=== PATIENT | male | born 1925 | race Caucasian/White ===

== ENCOUNTER 2016-12-20 15:01 | Emergency (ER) | payer OTHER, MEDICARE ==
[2016-12-20 15:07] VITALS: TEMP 97.5
--- NOTE | 2016-12-20 15:18 | EDPHY ---
H & P Stated Complaint: lac to r arm Time Seen by Provider: 12/20/16 15:11 HPI/ROS: CHIEF COMPLAINT: Arm laceration HISTORY OF PRESENT ILLNESS: The patient is an 89-year-old man who was walking out his door and hit his arm on the door handle. He has a laceration to his right forearm on the palmar aspect. Neurovascularly intact distally. He denies other injuries. Normal range of motion movement. REVIEW OF SYSTEMS: Constitutional: denies: chills, fever, recent illness, recent injury EENTM: denies: blurred vision, double vision, nose congestion Respiratory: denies: cough, shortness of breath Cardiac: denies: chest pain, irregular heart rate, lightheadedness, palpitations Gastrointestinal/Abdominal: denies: abdominal pain, diarrhea, nausea, vomiting, blood streaked stools Genitourinary: denies: dysuria, frequency, hematuria, pain Musculoskeletal: denies: joint pain, muscle pain Skin: See HPI Neurological: denies: headache, numbness, paresthesia, tingling, dizziness, weakness Hematologic/Lymphatic: denies: blood clots, easy bleeding, easy bruising Immunologic/allergic: denies: HIV/AIDS, transplant EXAM: GENERAL: Well-appearing, well-nourished and in no acute distress. HEAD: Atraumatic, normocephalic. EYES: Pupils equal round and reactive to light, extraocular movements intact, sclera anicteric, conjunctiva are normal. ENT: TMs normal, nares patent, oropharynx clear without exudates. Moist mucous membranes. NECK: Normal range of motion, supple without lymphadenopathy or JVD. LUNGS: Breath sounds clear to auscultation bilaterally and equal. No wheezes rales or rhonchi. HEART: Regular rate and rhythm without murmurs, rubs or gallops. ABDOMEN: Soft, nontender, normoactive bowel sounds. No guarding, no rebound. No masses appreciated. BACK: No CVA tenderness, no spinal tenderness, step-offs or deformities EXTREMITIES: Normal range of motion, no pitting or edema. No clubbing or cyanosis. NEUROLOGICAL: Cranial nerves II through XII grossly intact. Normal speech, normal gait. 5/5 strength, normal movement in all extremities, normal sensation PSYCH: Normal mood, normal affect. SKIN: 4 cm 90 degree laceration right forearm as described above, Source: Patient Exam Limitations: No limitations - Personal History Current Tetanus/Diphtheria Vaccine: Yes - Medical/Surgical History Hx Asthma: No Hx Chronic Respiratory Disease: No Hx Diabetes: No Hx Cardiac Disease: No Hx Renal Disease: No Hx Cirrhosis: No Hx Alcoholism: No Hx HIV/AIDS: No Hx Splenectomy or Spleen Trauma: No Other PMH: HTN, HYPERLIPIDEMIA, HYPOTHYROID - Family History Significant Family History: No pertinent family hx - Social History Smoking Status: Never smoked Alcohol Use: Sober Drug Use: None Constitutional: Initial Vital Signs Temperature (C) 36.4 C 12/20/16 15:04 Heart Rate 84 12/20/16 15:04 Respiratory Rate 17 12/20/16 15:04 Blood Pressure 158/88 H 12/20/16 15:04 O2 Sat (%) 92 12/20/16 15:04 O2 Delivery Mode Room Air Allergies/Adverse Reactions: No Known Allergies Allergy (Verified 12/20/16 15:02) Home Medications: Medication Instructions Recorded Aspirin [Aspirin 325 mg (*)] 325 mg PO DAILY@18 10/28/15 Brimonidine 0.1% [ALPHAGAN P 0.1% 1 drops EACHEYE BID 10/28/15 (*)] Latanoprost 0.005% [Xalatan 0.005% 1 drops LEFTEYE HS 10/28/15 (*)] Levothyroxine [Synthroid 50 mcg 50 mcg PO DAILY06 10/28/15 (*)] Lisinopril [Zestril 20 mg (*)] 20 mg PO DAILY 10/28/15 Metoprolol Succinate Xr [Toprol Xl 25 mg PO DAILY@12 10/28/15 25 mg (*)] Rosuvastatin Calcium [Crestor 20mg 20 mg PO DAILY@18 10/28/15 (*)] Acetaminophen [Tylenol 325mg (*)] 650 mg PO Q4 PRN #0 tab 10/30/15 Medical Decision Making Procedures: Procedure: Laceration repair. Verbal consent was obtained from the patient. The 4 cm arm laceration was anesthetized with [1% lidocaine with epi and bicarbonate] [locally infiltrated] . The wound was irrigated copiously according to protocol, draped and explored to its base. It was approximately 2 mm deep. There were no deep structures involved. No tendon, nerve, or vascular injury was identified when explored [ through full range of motion]. No foreign body was identified. The wound was repaired with 5.0 gut, for interrupted sutures in 2 horizontal mattress. The wound repair was complex with flap realignment. The procedure was performed by myself. It was then reinforced with Steri-Strips. A dressing was then placed with sterile gauze. ED Course/Re-evaluation: Patient tolerated the procedure well. He is neurovascularly intact. We discussed suture care and follow-up. We discussed indications for returning. Differential Diagnosis: Partial list of the Differential diagnosis considered include but were not limited to; laceration, contusion and although unlikely based on the history and physical exam, I also considered fracture, foreign body, infection. I discussed these differential diagnoses and the plan with the patient as well as the usual and expected course. The patient understands that the diagnosis is provisional and that in medicine we are not always correct and that further workup is often warranted. Usual and customary warnings were given. All of the patient's questions were answered. The patient was instructed to return to the emergency department should the symptoms at all worsen or return, otherwise to followup with the physician as we discussed. Departure - Departure Disposition: Home, Routine, Self-Care Clinical Impression: Laceration Condition: Fair Instructions: Laceration (ED), Care For Your Absorbable Stitches (ED) Additional Instructions: Your stitches should dissolve in the next 5-6 days. If they do not return to have them removed. Referrals: Jose Miguel Salazar MD [Primary Care Provider] - As per Instructions
[2016-12-20 16:24] VITALS: BP 136/65; PULSE 71; RESP 16; O2SAT 90
== END 2016-12-20 16:23 | disposition home or self-care (01) ==
PROC: 0HQDXZZ Repair Right Lower Arm Skin, External Approach (ICD-10-PCS; principal; 2016-12-20)
DX: S51.811A Laceration without foreign body of right forearm, initial encounter (principal); I10 Essential (primary) hypertension; Z79.82 Long term (current) use of aspirin; W22.8XXA Striking against or struck by other objects, initial encounter; Y99.8 Other external cause status; Y93.01 Activity, walking, marching and hiking

== ENCOUNTER 2016-12-26 13:57 | Inpatient (IN) | payer OTHER, MEDICARE ==
--- NOTE | 2016-12-26 14:36 | EDPHY ---
H & P Stated Complaint: swollen R arm Time Seen by Provider: 12/26/16 14:23 HPI/ROS: CHIEF COMPLAINT: Possible cellulitis HISTORY OF PRESENT ILLNESS: 89-year-old immunocompetent male initially evaluated emergency department on 12/20/2016 after he sustained an accidental laceration to his right forearm at which point sutures replaced. States that 2 days later started to developed diffuse erythema, has been seen 3 times at the [facility] and given IV antibiotics. Today he returned to [facility] and because the erythema had progressed he was referred to the emergency department for evaluation PRIMARY CARE PROVIDER:Dr. Jose Miguel Salazar REVIEW OF SYSTEMS: A ten point review of systems was performed and is negative with the exception of the items mentioned in the HPI PAST MEDICAL & SURGICAL HISTORY: Hypertension. Hypothyroidism. Tetanus up-to -date SOCIAL HISTORY: nonsmoker PHYSICAL EXAM (Prior to examination, patient consented to physical exam, hands were washed and my usual and customary physical exam procedures followed) 1) GENERAL: Well-developed, well-nourished, alert and oriented. Appears to be in no acute distress. 2) HEAD: Normocephalic, atraumatic 3) HEENT: Pupils equal, round, reactive to light bilaterally. Sclera anicteric. 4) NECK: Full range of motion, no meningeal signs. 5) LUNGS: Clear auscultation bilaterally 6) HEART: Regular rate and rhythm, 7) ABDOMEN: No guarding, no rebound, no focal tenderness, 8) MUSCULOSKELETAL: right upper extremity: Right forearm sutures in place. He has diffuse erythema extending proximally distally with associated induration. No axillary adenopathy. No crepitus. 9) BACK: no obvious trauma, no visual or palpable abnormality. 10) SKIN: No rash, no petechiae. DIFFERENTIAL DIAGNOSIS: in no particular include but limited to necrotizing fasciitis, cellulitis, abscess - Personal History Current Tetanus/Diphtheria Vaccine: Yes Current Tetanus Diphtheria and Acellular Pertussis (TDAP): Yes - Medical/Surgical History Hx Asthma: No Hx Chronic Respiratory Disease: No Hx Diabetes: No Hx Cardiac Disease: No Hx Renal Disease: No Hx Cirrhosis: No Hx Alcoholism: No Hx HIV/AIDS: No Hx Splenectomy or Spleen Trauma: No Other PMH: HTN, HYPERLIPIDEMIA, HYPOTHYROID - Social History Smoking Status: Never smoked Constitutional: Initial Vital Signs Temperature (C) 36.5 C 12/26/16 14:03 Heart Rate 105 H 12/26/16 14:03 Respiratory Rate 16 12/26/16 14:03 Blood Pressure 126/58 H 12/26/16 14:03 O2 Sat (%) 93 12/26/16 14:03 O2 Delivery Mode Room Air Allergies/Adverse Reactions: No Known Allergies Allergy (Verified 12/20/16 15:02) Home Medications: Medication Instructions Recorded Aspirin [Aspirin 325 mg (*)] 325 mg PO DAILY@18 10/28/15 Brimonidine 0.1% [ALPHAGAN P 0.1% 1 drops EACHEYE BID 10/28/15 (*)] Latanoprost 0.005% [Xalatan 0.005% 1 drops LEFTEYE HS 10/28/15 (*)] Levothyroxine [Synthroid 50 mcg 50 mcg PO DAILY06 10/28/15 (*)] Lisinopril [Zestril 20 mg (*)] 20 mg PO DAILY 10/28/15 Metoprolol Succinate Xr [Toprol Xl 25 mg PO DAILY@12 10/28/15 25 mg (*)] Rosuvastatin Calcium [Crestor 20mg 20 mg PO DAILY@18 10/28/15 (*)] Acetaminophen [Tylenol 325mg (*)] 650 mg PO Q4 PRN #0 tab 10/30/15 Medical Decision Making - Diagnostics Imaging Results: Imaging Impressions Extremity Venous Study 12/26/16 14:32 Impression: No evidence of DVT. Findings discussed with Eleuterio Valle 12/26/2016 at 16:02. Imaging: Discussed imaging studies w/ call manager Radiologist ED Course/Re-evaluation: Serial evaluations performed on patient. Doubt necrotizing fasciitis. Ultrasound performed to evaluate DVT. Plan will be admission to hospitalist for right upper extremity cellulitis. The sutures have been removed by myself. Discussed case with Dr. Gardner in ER. Consultation with hospitalist Dr. Burton at 3:19 pm who accepts patient for admission - Data Points Laboratory Results: Laboratory Results 12/26/16 15:00 12/26/16 15:00 12/26/16 12/26/16 12/26/16 15:00 15:00 15:00 WBC 15.62 10^3/uL H 10^3/uL (3.80-9.50) RBC 4.46 10^6/uL 10^6/uL (4.40-6.38) Hgb 14.3 g/dL g/dL (13.7-17.5) Hct 42.8 % % (40.0-51.0) MCV 96.0 fL fL (81.5-99.8) MCH 32.1 pg pg (27.9-34.1) MCHC 33.4 g/dL g/dL (32.4-36.7) RDW 14.0 % % (11.5-15.2) Plt Count 170 10^3/uL 10^3/uL (150-400) MPV 11.8 fL H fL (8.7-11.7) Neut % (Auto) 80.0 % H % (39.3-74.2) Lymph % (Auto) 7.3 % L % (15.0-45.0) [place] % (Auto) 11.2 % % (4.5-13.0) Eos % (Auto) 0.8 % % (0.6-7.6) Baso % (Auto) 0.3 % % (0.3-1.7) Nucleat RBC Rel Count 0.0 % % (0.0-0.2) Absolute Neuts (auto) 12.50 10^3/uL H 10^3/uL (1.70-6.50) Absolute Lymphs (auto) 1.14 10^3/uL 10^3/uL (1.00-3.00) Absolute Monos (auto) 1.75 10^3/uL H 10^3/uL (0.30-0.80) Absolute Eos (auto) 0.12 10^3/uL 10^3/uL (0.03-0.40) Absolute Basos (auto) 0.05 10^3/uL 10^3/uL (0.02-0.10) Absolute Nucleated RBC 0.00 10^3/uL 10^3/uL (0-0.01) Immature Gran % 0.4 % % (0.0-1.1) Immature Gran # 0.06 10^3/uL 10^3/uL (0.00-0.10) PT 15.1 SEC H SEC (12.0-15.0) INR 1.19 H (0.83-1.16) APTT 38.4 SEC H SEC (23.0-38.0) VBG Lactic Acid Sodium 139 mEq/L mEq/L (134-144) Potassium 4.4 mEq/L mEq/L (3.5-5.2) Chloride 106 mEq/L mEq/L (97-110) Carbon Dioxide 23 mEq/l mEq/l (22-31) Anion Gap 10 mEq/L mEq/L (8-16) BUN 36 mg/dL H mg/dL (7-23) Creatinine 1.2 mg/dL mg/dL (0.7-1.3) Estimated GFR 57 Glucose 111 mg/dL H mg/dL (70-100) Calcium 8.5 mg/dL mg/dL (8.5-10.4) Total Bilirubin 0.6 mg/dL mg/dL (0.1-1.4) 12/26/16 15:00 WBC RBC Hgb Hct MCV MCH MCHC RDW Plt Count MPV Neut % (Auto) Lymph % (Auto) [place] % (Auto) Eos % (Auto) Baso % (Auto) Nucleat RBC Rel Count Absolute Neuts (auto) Absolute Lymphs (auto) Absolute Monos (auto) Absolute Eos (auto) Absolute Basos (auto) Absolute Nucleated RBC Immature Gran % Immature Gran # PT INR APTT VBG Lactic Acid 1.2 mmol/L mmol/L (0.7-2.1) Sodium Potassium Chloride Carbon Dioxide Anion Gap BUN Creatinine Estimated GFR Glucose Calcium Total Bilirubin Medications Given: Discontinued Medications Cefazolin Sodium/Dextrose (Ancef 1 Gm (Premix)) 50 mls @ 200 mls/hr IV EDNOW ONE PRN Reason: Protocol Stop: 12/26/16 14:46 Last Admin: 12/26/16 15:45 Dose: 50 mls Vancomycin/Sodium Chloride (Vancomycin 1 Gm (Premix)) 250 mls @ 250 mls/hr IV EDNOW ONE PRN Reason: Protocol Stop: 12/26/16 16:16 Last Admin: 12/26/16 16:10 Dose: 250 mls Departure - Departure Disposition: [facility] Acute Clinical Impression: Cellulitis of right upper extremity Condition: Fair
[2016-12-26] MEDS ORDERED: VANCOMYCIN HCL/NORMAL SALINE 250 ML IV ONE (15:17)
[2016-12-26 15:22] LABS: % IMMATURE GRANULYOCYTES 0.4 % (0.0-1.1); ABSOLUTE IMMATURE GRANULOCYTES 0.06 10^3/uL (0.00-0.10); ADD DIFF? NO; ADD MORPH? NO; ADD SCAN? NO; ATYPICAL LYMPHOCYTE FLAG 0 (0-99); FRAGMENT RBC FLAG 0 (0-99); HEMATOCRIT 42.8 % (40.0-51.0); HEMOGLOBIN 14.3 g/dL (13.7-17.5); LEFT SHIFT FLG 10 (0-99); LIPEMIA HEMOLYSIS FLAG 80 (0-99); MEAN CELL HEMOGLOBIN 32.1 pg (27.9-34.1); MEAN CELL HEMOGLOBIN CONCENTR. 33.4 g/dL (32.4-36.7); MEAN PLATELET VOLUME 11.8 fL (8.7-11.7); PLATELET CLUMPS FLAG 0 (0-99); PLATELET COUNT 170 10^3/uL (150-400); RED BLOOD CELL COUNT 4.46 10^6/uL (4.40-6.38)
[2016-12-26 15:26] LABS: INR 1.19 (0.83-1.16); PROTIME(PATIENT) 15.1 SEC (12.0-15.0)
[2016-12-26 15:33] LABS: APTT 38.4 SEC (23.0-38.0)
[2016-12-26 15:35] LABS: ANION GAP 10 mEq/L (8-16); BILIRUBIN,TOTAL 0.6 mg/dL (0.1-1.4); CALCIUM 8.5 mg/dL (8.5-10.4); CARBON DIOXIDE 23 mEq/l (22-31); CHLORIDE 106 mEq/L (97-110); CREATININE 1.2 mg/dL (0.7-1.3); GLOMERULAR FILTRATION RATE 57; GLUCOSE 111 mg/dL (70-100); POTASSIUM 4.4 mEq/L (3.5-5.2); SODIUM 139 mEq/L (134-144)
[2016-12-26] MEDS ORDERED: ONDANSETRON DISINTEGRATING 4 MG TAB PO PRN (19:21)
[2016-12-26] MEDS ORDERED: ONDANSETRON 4 MG/2 ML VIAL IVP PRN (19:21)
--- NOTE | 2016-12-26 19:50 | GHP ---
[f rep st] HISTORY AND PHYSICAL DATE OF ADMISSION: 12/26/2016 CHIEF COMPLAINT: Right arm cellulitis. HISTORY OF PRESENT ILLNESS: This is an 89-year-old male with no significant past medical history. About a week ago, he suffered a laceration on his right forearm when he hit his arm on a door handle . This was sutured in the emergency department, but after a couple days afterwards, he started deve loping redness. He has been on Keflex for a few days and on an IV antibiotic at the [facility] for the last day. He is not having any fevers or chills. The redness has worsened over the last several days. He does not have significant amounts of pain. No chest pain or shortness of br eath. REVIEW OF SYSTEMS: A 10-point review of systems was obtained, and other than stated above, was nega tive. PAST MEDICAL HISTORY: Hypertension, hyperlipidemia, hypothyroidism, peripheral vascular disease and is status post some type of intervention with Dr. Guadalupe, which did not help his symptoms. SOCIAL HISTORY: No smoking. Occasional alcohol. FAMILY HISTORY: Both parents are . PHYSICAL EXAMINATION: VITAL SIGNS: Afebrile, blood pressure is 141/62, heart rate is 77, oxygen sa turation is 93% on room air. GENERAL: The patient is well developed, in no apparent distress. KAYLENE NT: Nonicteric sclerae. Extraocular movements intact. Moist mucous membranes. NECK: Supple. No thyromegaly. LUNGS: Good effort. Clear to auscultation bilaterally. CARDIOVASCULAR: Regular ra te and rhythm. No murmurs, gallops. ABDOMEN: Positive bowel sounds. Soft, nontender, nondistende d. No hepatosplenomegaly. EXTREMITIES: No clubbing, cyanosis in the lower extremities. The right arm shows diffuse erythema from the hand all the way up to the midhumerus. The sutures are intact without any exudate or purulence or even comparatively worsening erythema. LABORATORY AND X-RAY DATA: White count is 15, otherwise, normal. Lactate is normal. Chemistry is essentially normal. Ultrasound of the right upper extremity shows no DVT. ASSESSMENT: An 89-year-old male presenting with right upper extremity cellulitis. PLAN: 1. Right lower extremity cellulitis. He has only been treated for a day or 2 of Keflex and I would not say this is necessarily indicative of MRSA. I would like to give him a trial of Ancef and see if he improves on that. If there is no improvement by tomorrow, we could consider switching over to vancomycin. There is no purulence to suggest staph, this is most likely strep. 2. Hypertension. Continue medications. 3. Admission. Patient will be admitted under full admission status. Case discussed with the ER ph ysician. Old records were reviewed and summarized in the HPI. /[id number]/MODL
[2016-12-26] MEDS: LATANOPROST 0.005% 2.5 ML OPHT DROPS LEFTEYE SCH (21:29)
[2016-12-26] MEDS: BRIMONIDINE 0.1% 5 ML OPHT.BTL EACHEYE SCH (21:29)
[2016-12-26] MEDS: ceFAZolin 2 GM/DEXTROSE 100 ML IV SCH (23:31)
[2016-12-27] MEDS: LEVOTHYROXINE 50 MCG TAB PO SCH (05:06)
[2016-12-27 05:20] LABS: % IMMATURE GRANULYOCYTES 0.3 % (0.0-1.1); ABSOLUTE IMMATURE GRANULOCYTES 0.05 10^3/uL (0.00-0.10); ADD DIFF? NO; ADD MORPH? NO; ADD SCAN? NO; ATYPICAL LYMPHOCYTE FLAG 0 (0-99); FRAGMENT RBC FLAG 0 (0-99); HEMATOCRIT 41.2 % (40.0-51.0); HEMOGLOBIN 13.5 g/dL (13.7-17.5); LEFT SHIFT FLG 10 (0-99); LIPEMIA HEMOLYSIS FLAG 80 (0-99); MEAN CELL HEMOGLOBIN 31.5 pg (27.9-34.1); MEAN CELL HEMOGLOBIN CONCENTR. 32.8 g/dL (32.4-36.7); MEAN CELL VOLUME 96.3 fL (81.5-99.8); MEAN PLATELET VOLUME 11.5 fL (8.7-11.7); PLATELET CLUMPS FLAG 0 (0-99); PLATELET COUNT 151 10^3/uL (150-400); RED BLOOD CELL COUNT 4.28 10^6/uL (4.40-6.38); RED CELL DISTRIBUTION WIDTH 13.9 % (11.5-15.2)
[2016-12-27 05:37] LABS: ANION GAP 8 mEq/L (8-16); CALCIUM 8.4 mg/dL (8.5-10.4); CARBON DIOXIDE 22 mEq/l (22-31); CHLORIDE 111 mEq/L (97-110); GLOMERULAR FILTRATION RATE > 60; GLUCOSE 111 mg/dL (70-100); POTASSIUM 4.5 mEq/L (3.5-5.2); SODIUM 141 mEq/L (134-144)
[2016-12-27] MEDS: LISINOPRIL 20 MG TAB PO SCH (08:18)
[2016-12-27] MEDS: ceFAZolin 2 GM/DEXTROSE 100 ML IV SCH (08:18)
[2016-12-27] MEDS: ENOXAPARIN 40 MG/0.4 ML SYR SC SCH (08:18)
[2016-12-27] MEDS: BRIMONIDINE 0.1% 5 ML OPHT.BTL EACHEYE SCH ×2 (10:12→20:14)
--- NOTE | 2016-12-27 10:34 | HOSPPROG ---
Hospitalist Progress Note Assessment/Plan: # RUE cellulitis - unclear if improved overnight - cont ancef for now, will reassess later today and consider vanc # leukocytosis d/t above # hypoxia - unclear if chronic or acute - check CXR # htn - cont lisino, metop and follow # hld - statin # dvt ppx - lovenox Subjective: does not think redness better today; reported wheezes with activity per RN Objective: Vital Signs Temp Pulse Resp BP Pulse Ox 37.1 C 98 18 144/83 H 82 L 12/27/16 08:17 12/27/16 08:00 12/27/16 08:00 12/27/16 08:18 12/27/16 08:16 Laboratory Results 12/27/16 04:57 12/27/16 04:57 12/26/16 12/27/16 12/28/16 05:59 05:59 05:59 Intake Total 300 Balance 300 PT 15.1 SEC (12.0-15.0) H 12/26/16 15:00 INR 1.19 (0.83-1.16) H 12/26/16 15:00 chart reviewed; US reviewed - Physical Exam Constitutional: no apparent distress, appears nourished Cardiovascular: regular rate and rhythym, no murmur, rub, or gallop Respiratory: no respiratory distress, no rales or rhonchi Gastrointestinal: normoactive bowel sounds, soft, non-tender abdomen, no palpable masses Musculoskeletal: other (R arm with erythema, warmth, TTP; no axillary LAD) ICD10 Worksheet Patient Problems: Problems Problem Status Onset Cellulitis of hand Acute Cellulitis of right upper extremity Acute
[2016-12-27] MEDS: METOPROLOL SUCCINATE XR 25 MG TAB PO SCH (12:56)
[2016-12-27] MEDS ORDERED: VANCOMYCIN HCL/NORMAL SALINE 250 ML IV SCH (16:00)
[2016-12-27] MEDS: ACETAMINOPHEN 325 MG TAB PO PRN (16:25)
[2016-12-27] MEDS: ASPIRIN 325 MG TAB PO SCH (18:14)
[2016-12-27] MEDS: ROSUVASTATIN CALCIUM 20 MG TAB PO SCH (18:14)
[2016-12-27] MEDS: LATANOPROST 0.005% 2.5 ML OPHT DROPS LEFTEYE SCH (21:03)
[2016-12-28] MEDS: ACETAMINOPHEN 325 MG TAB PO PRN ×2 (00:24→12:48)
[2016-12-28] MEDS ORDERED: IPRATROPIUM/ALBUTEROL 3 ML DEYVIAL IH PRN ×2 (01:11→21:50)
[2016-12-28] MEDS: HYDROCODONE/APAP 5/325 TAB PO PRN ×4 (03:26→21:30)
[2016-12-28] MEDS: CLINDAMYCIN 900 MG/DEXTROSE 50 ML IV SCH ×2 (04:13→05:39)
[2016-12-28] MEDS ORDERED: IOPAMIDOL (ISOVUE-300) 100 ML BTL ONE (04:21)
[2016-12-28] MEDS ORDERED: CLINDAMYCIN 900 MG/DEXTROSE 50 ML IV SCH (05:00)
[2016-12-28 05:28] LABS: % IMMATURE GRANULYOCYTES 0.4 % (0.0-1.1); ABSOLUTE IMMATURE GRANULOCYTES 0.06 10^3/uL (0.00-0.10); ADD DIFF? NO; ADD MORPH? NO; ADD SCAN? NO; ATYPICAL LYMPHOCYTE FLAG 0 (0-99); FRAGMENT RBC FLAG 0 (0-99); LEFT SHIFT FLG 0 (0-99); LIPEMIA HEMOLYSIS FLAG 80 (0-99); MEAN CELL HEMOGLOBIN 32.1 pg (27.9-34.1); MEAN CELL HEMOGLOBIN CONCENTR. 33.3 g/dL (32.4-36.7); MEAN CELL VOLUME 96.3 fL (81.5-99.8); MEAN PLATELET VOLUME 10.6 fL (8.7-11.7); PLATELET CLUMPS FLAG 0 (0-99); PLATELET COUNT 160 10^3/uL (150-400); RED BLOOD CELL COUNT 4.05 10^6/uL (4.40-6.38); RED CELL DISTRIBUTION WIDTH 13.9 % (11.5-15.2)
[2016-12-28 05:43] LABS: ANION GAP 9 mEq/L (8-16); CALCIUM 7.7 mg/dL (8.5-10.4); CARBON DIOXIDE 22 mEq/l (22-31); CHLORIDE 107 mEq/L (97-110); GLOMERULAR FILTRATION RATE > 60; GLUCOSE 111 mg/dL (70-100); POTASSIUM 4.3 mEq/L (3.5-5.2); SODIUM 138 mEq/L (134-144)
[2016-12-28] MEDS: LEVOTHYROXINE 50 MCG TAB PO SCH (05:47)
[2016-12-28] MEDS: IPRATROPIUM/ALBUTEROL 3 ML DEYVIAL IH SCH ×3 (06:02→17:09)
[2016-12-28] MEDS: ENOXAPARIN 40 MG/0.4 ML SYR SC SCH (07:57)
[2016-12-28] MEDS: LISINOPRIL 20 MG TAB PO SCH (07:57)
--- NOTE | 2016-12-28 09:03 | HOSPPROG ---
Hospitalist Progress Note Assessment/Plan: # RUE cellulitis - possibly mildly worse today - changed to vanc yesterday, clinda added overnight - ID consult today # leukocytosis d/t above - persistent # hypoxia - nothing clearly on CXR; - start IS # htn - cont lisino, metop and follow # hld - statin # dvt ppx - lovenox Subjective: seen overnight by Dr Elizalde and Allyson for worsening cellulitis; tells me he thinks it is slightly worse but was better during the day Objective: Vital Signs Temp Pulse Resp BP Pulse Ox 35.9 C L 83 18 155/71 H 95 12/28/16 07:57 12/28/16 07:57 12/28/16 07:57 12/28/16 07:57 12/28/16 07:57 Laboratory Results 12/28/16 05:22 12/28/16 05:22 12/27/16 12/28/16 12/29/16 05:59 05:59 05:59 Intake Total 300 1200 Balance 300 1200 PT 15.1 SEC (12.0-15.0) H 12/26/16 15:00 INR 1.19 (0.83-1.16) H 12/26/16 15:00 CT extremity reviewed discussed with Dr Elizalde CXR personally reviewed - Physical Exam Constitutional: no apparent distress, appears nourished Cardiovascular: regular rate and rhythym, no murmur, rub, or gallop Respiratory: no respiratory distress, no rales or rhonchi, clear to auscultation Gastrointestinal: normoactive bowel sounds, soft, non-tender abdomen, no palpable masses Musculoskeletal: other (R arm edema/erythema extending beyond marking) ICD10 Worksheet Patient Problems: Problems Problem Status Onset Cellulitis of hand Acute Cellulitis of right upper extremity Acute
[2016-12-28] MEDS: ceFAZolin 2 GM/DEXTROSE 100 ML IV SCH ×3 (10:28→21:31)
[2016-12-28] MEDS: BRIMONIDINE 0.1% 5 ML OPHT.BTL EACHEYE SCH ×2 (10:28→21:37)
--- NOTE | 2016-12-28 11:32 | SOAPPROG ---
SOAP Progress Note Assessment/Plan: 12/28/2016 11:30 Assessment: Consult follow up: Edema and erythema less after chuckie wrap and elevation. no proximal extension of erythema seen. I understand that there has been a change in antibiotics (vanco to ancef). I feel that he is stable and that surgical intervention is not needed at this point ( He had received oral keflex on 12/23 and IV Rocephin on 12/25) Objective: Vital Signs Temp Pulse Resp BP Pulse Ox 35.9 C L 83 18 155/71 H 95 12/28/16 07:57 12/28/16 07:57 12/28/16 07:57 12/28/16 07:57 12/28/16 07:57 Laboratory Results 12/28/16 05:22 12/28/16 05:22 12/27/16 12/28/16 12/29/16 05:59 05:59 05:59 Intake Total 300 1200 Balance 300 1200 PT 15.1 SEC (12.0-15.0) H 12/26/16 15:00 INR 1.19 (0.83-1.16) H 12/26/16 15:00 ICD10 Worksheet Patient Problems: Problems Problem Status Onset Cellulitis of right upper extremity Acute Cellulitis of hand Acute
[2016-12-28] MEDS: METOPROLOL SUCCINATE XR 25 MG TAB PO SCH (12:48)
[2016-12-28] MEDS: CLINDAMYCIN 600 MG/DEXTROSE 50 ML IV SCH ×2 (13:14→21:31)
--- NOTE | 2016-12-28 14:45 | GCON ---
[f rep st] CONSULTATION DATE OF CONSULTATION: 12/28/2016 REFERRING PHYSICIAN: Rita Elizalde MD REASON FOR CONSULTATION: Right upper extremity cellulitis, unresponsive to antibiotic therapy. HISTORY OF PRESENT ILLNESS: The patient is an 89-year-old male with a past medical history of perip heral vascular disease, who I am asked to see in consultation for a cellulitis which has been unresp onsive to antibiotic therapy. DICTATION ENDED HERE /[id number]/MODL
--- NOTE | 2016-12-28 14:55 | GCON ---
[f rep st] CONSULTATION REFERRING PHYSICIAN: Rita Elizalde MD HISTORY: The patient is an 89-year-old white male who was 1st seen at [facility] in the ER on December 20. He had injured his right forearm on the handle of the door. His wound, which was approximately 2.5 cm long on the volar aspect of his right forearm, had been closed with sutures. He was dismissed from the ER. He noticed increasing erythema 2 days later and went back for the 1st (12/23) of 3 visits to the [facility] as he could not get in to see his family physician. He was started on Keflex at that time. As the erythema progressed, he returned (12/25) and IV antibiotic was used (unknown). He then returned for a 3rd visit on Thursday (12/26) and was seen, but it was recommended he come to the ER for evaluation. He was seen in the ER. He had erythema and a swollen arm. An ultrasound was performed to rule out DVT as a cause for the swelling; none was identified. He was admitted for IV antibiotics. He was initially on Ancef, but was switched approximately 24 hours after admission to vancomycin. The erythema was marked with a blue line. I was called to see him for increasing swelling of his arm. A CAT scan has been performed, which shows subcutaneous edema, consistent with cellulitis. There is no evidence of air on the CT. His temperature has been essentially 37 degrees for the past 3 checks. His heart rate is in the high 70s. His blood pressure is stable. His lactic acid level is 1.2. He has had good urine output. His white blood count has been hovering about 15,000. His INR is 1.19. The percentage of neutrophils on his differential has essentially been 80% throughout. PHYSICAL EXAMINATION: He has erythema of his right forearm. There is a blue line circumferentially at approximately the level of the distal 1/3rd of the humerus. There is no axillary lymphadenopathy. There is 3+ edema of the forearm. It is slightly warm to touch. The pain is not out of proportion to the physical findings and, in fact, it is fairly minimal. He has not really had his arm elevated. The arm was wrapped with a Kerlix gauze and an Dalton wrap from the level of the finger tips to the level of the distal humerus. I will return to recheck his arm in approximately 2-3 hours. IMPRESSION: Cellulitis in an otherwise uncompromised host. He does not have diabetes or renal failure. I agree with the antibiotic treatment plan which includes IV vancomycin and clindamycin. I do not see a need for surgical intervention at this point. I will continue to reassess with you. I did contact Rita Elizalde M.D. by phone and relayed these observations and findings. /[id number]/MODL MTDD
--- NOTE | 2016-12-28 15:00 | GCON ---
[f rep st] CONSULTATION INFECTIOUS DISEASE CONSULTATION DATE OF CONSULTATION: 12/28/2016 REFERRING PHYSICIAN: Temi Nguyen REASON FOR CONSULTATION: Right upper extremity cellulitis unresponsive to antibiotic therapy. HISTORY OF PRESENT ILLNESS: Patient is an 89-year-old male with a past medical history of periphera l vascular disease and prior episode of right hand cellulitis in 2016, whom I am asked to see in [facility] for a right upper extremity cellulitis unresponsive to antibiotic therapy. The patient balderas stained a skin tear when opening a door approximately 9 days ago. He sought care in the emergency d [facility], at which point in time he had his wound cleaned and sutured closed. The patient believes he is up to date on his tetanus. Approximately 3 days after his injury, he developed pain, erythem a and edema of the arm surrounding the area. He was seen in urgent care at [facility], at which point in time he describes being started on cephalexin. Symptoms progressed, and he contin ued to have regular followup there including IV antibiotics. His initial cephalexin was dosed at 25 0 mg, and he describes having this increased to 500 mg 4 times daily. Ultimately, he did not experi ence improvement and was hospitalized for further evaluation and care. He does not describe having fever or chills. He has had some mild nausea without vomiting. He describes having some loose stoo ls. At the time of admission, he was noted to have a white count of 15,000. He was started on cefazolin , which was changed to vancomycin yesterday given persistent symptoms, and clindamycin was also adde d overnight, as his arm was felt to be worsening. A CT scan of the arm was performed, which did not show evidence of gas or abscess and was felt to be most consistent with cellulitis. Blood cultures obtained at the time of admission are no growth to date. The patient denies any prior history of M RSA. Given the above findings, I am now asked to assist in his ongoing management. PAST MEDICAL HISTORY: Peripheral vascular disease, hypertension, hyperlipidemia, hypothyroidism. PAST SURGICAL HISTORY: Shoulder surgery, hemorrhoidectomy. CURRENT MEDICATIONS: Vancomycin 1 g IV daily, clindamycin 900 mg IV q.8 hours, Lovenox 40 mg subcu daily, aspirin 325 mg p.o. daily, DuoNeb q.6 hours, Synthroid 50 mcg p.o. daily, lisinopril 20 mg p. o. daily, Toprol-XL 25 mg p.o. daily, Crestor 20 mg p.o. daily. ALLERGIES: No known drug allergies. SOCIAL HISTORY: Patient does not smoke and rarely drinks alcohol. No recent travel or pets. FAMILY HISTORY: Mother of stroke. REVIEW OF SYSTEMS: Outside that noted in the HPI, the remainder of a 10-system review is unremarkab le. PHYSICAL EXAMINATION: VITAL SIGNS: Temperature 35.9, temperature 35.9, heart rate 83, respiratory rate 18, blood pressure 155/71, oxygen saturation 95% on 2 L. GENERAL: Patient is well nourished, well developed, in no acute distress. He appears nontoxic. HEENT: There is no scleral icterus, co njunctival injection, or conjunctival petechiae. Oropharynx is clear without lesions. Dentition is in good repair. There is no nasal discharge. There is no tenderness over the frontal, maxillary o r mastoid area. NECK: Supple without lymphadenopathy or palpable thyromegaly. CHEST: Clear to au scultation bilaterally without adventitious sounds. The respiratory effort is normal. CARDIOVASCUL AR: Regular rate and rhythm with a 2/6-systolic murmur at the right upper sternal border. No nolen ps or rubs are noted. ABDOMEN: Soft, nontender, nondistended. There is no palpable organomegaly. Bowel sounds are present. MUSCULOSKELETAL: Right upper extremity shows edema, erythema, warmth and tenderness over the hand, forearm and approximately lower 3rd of the upper arm. Laceration over th e distal forearm is well healed without palpable fluctuance or purulence. The most prominent findin gs are present in the dependent portion of the patient's forearm. There are no bullae or areas of c repitus. LYMPHATICS: No cervical or supraclavicular nodes. There is no lymphangitis in the right upper extremity. NEUROLOGIC: Patient is alert and interacts appropriately with examiner. Cranial nerves 2-12 are grossly intact. Sensation is grossly intact. Muscle tone and bulk are normal. LABORATORY DATA: White blood cell count 16.3, hematocrit 39.0, platelets 160, neutrophils 80%. INR is 1.2, lactate 1.2 at time of admission, creatinine 1.0. CT as outlined above was reviewed and in terpreted by me today. Blood cultures x2 sets, no growth. Ultrasound of the upper extremity shows no DVT. IMPRESSION: Right upper extremity cellulitis after laceration: The patient has not had significant improvement despite antibiotic therapy. Suspect this does not represent antibiotic failure, rather represents anticipated slow improvement based on extent of disease. Appearance is most compatible with beta-hemolytic streptococci such as groups A, B, C, or G. Doubt this is due to MRSA. Favor re sumption of Ancef in combination with clindamycin given those features. Will therefore discontinue vancomycin. RECOMMENDATIONS: 1. Ancef 2 g IV q.8 hours. 2. Clindamycin 600 mg IV q.8 hours. 3. Discontinue vancomycin. 4. Right upper extremity elevation. 5. Follow clinical response to above measures over time. 6. Thank you for this consultation. We will continue to follow the patient with you. /[id number]/MODL
[2016-12-28] MEDS: ASPIRIN 325 MG TAB PO SCH (18:22)
[2016-12-28] MEDS: ROSUVASTATIN CALCIUM 20 MG TAB PO SCH (18:22)
[2016-12-28] MEDS: LATANOPROST 0.005% 2.5 ML OPHT DROPS LEFTEYE SCH (21:37)
[2016-12-29] MEDS: IPRATROPIUM/ALBUTEROL 3 ML DEYVIAL IH SCH (00:19)
[2016-12-29 05:13] LABS: % IMMATURE GRANULYOCYTES 0.6 % (0.0-1.1); ABSOLUTE IMMATURE GRANULOCYTES 0.09 10^3/uL (0.00-0.10); ADD DIFF? NO; ADD MORPH? NO; ADD SCAN? NO; ATYPICAL LYMPHOCYTE FLAG 0 (0-99); FRAGMENT RBC FLAG 0 (0-99); HEMATOCRIT 39.2 % (40.0-51.0); HEMOGLOBIN 13.1 g/dL (13.7-17.5); LEFT SHIFT FLG 20 (0-99); LIPEMIA HEMOLYSIS FLAG 80 (0-99); MEAN CELL HEMOGLOBIN 32.2 pg (27.9-34.1); MEAN CELL HEMOGLOBIN CONCENTR. 33.4 g/dL (32.4-36.7); MEAN CELL VOLUME 96.3 fL (81.5-99.8); MEAN PLATELET VOLUME 11.2 fL (8.7-11.7); PLATELET CLUMPS FLAG 0 (0-99); PLATELET COUNT 146 10^3/uL (150-400); RED BLOOD CELL COUNT 4.07 10^6/uL (4.40-6.38); RED CELL DISTRIBUTION WIDTH 14.1 % (11.5-15.2)
[2016-12-29] MEDS: LEVOTHYROXINE 50 MCG TAB PO SCH (06:14)
[2016-12-29] MEDS: CLINDAMYCIN 600 MG/DEXTROSE 50 ML IV SCH ×3 (06:14→22:35)
[2016-12-29] MEDS: ceFAZolin 2 GM/DEXTROSE 100 ML IV SCH ×3 (06:15→22:35)
[2016-12-29] MEDS: ENOXAPARIN 40 MG/0.4 ML SYR SC SCH (08:09)
[2016-12-29] MEDS: LISINOPRIL 20 MG TAB PO SCH (08:09)
[2016-12-29] MEDS: ACETAMINOPHEN 325 MG TAB PO PRN ×2 (08:09→22:40)
[2016-12-29] MEDS: BRIMONIDINE 0.1% 5 ML OPHT.BTL EACHEYE SCH ×2 (08:09→22:46)
--- NOTE | 2016-12-29 11:00 | HOSPPROG ---
Hospitalist Progress Note Assessment/Plan: Mr Tirado is an 89 y/0 male who hit a door handle and sustained a laceration. This was sutured closed and he was treated w Keflex. This occurred approximately a week prior to his admission. Today is my first encounter with the patient, chart reviewed. # RUE cellulitis after laceration -started on Ancef and Clindamycin on 12/28 -blood cx shows no growth at this time # leukocytosis d/t above # hypoxia - nothing clearly on CXR - start IS -improved today/ on room air during my evaluation #constipation -bowel protocol # htn - cont lisinopril, metoprolol -bp 127/60 # hld - statin # dvt ppx - lovenox Subjective: Gabriel is not c/o pain/ says his hand is more swollen but also has been more active. Objective: Vital Signs Temp Pulse Resp BP Pulse Ox 36.9 C 82 16 127/60 H 93 12/29/16 07:49 12/29/16 07:49 12/29/16 07:49 12/29/16 07:49 12/29/16 07:49 Laboratory Results 12/29/16 04:50 12/28/16 05:22 12/28/16 12/29/16 12/30/16 05:59 05:59 05:59 Intake Total 1200 1300 150 Balance 1200 1300 150 PT 15.1 SEC (12.0-15.0) H 12/26/16 15:00 INR 1.19 (0.83-1.16) H 12/26/16 15:00 - Physical Exam Constitutional: no apparent distress, appears nourished, not in pain Eyes: PERRL Ears, Nose, Mouth, Throat: hearing normal Cardiovascular: regular rate and rhythym Respiratory: no respiratory distress, reduced air movement Gastrointestinal: normoactive bowel sounds Skin: warm, other (right arm with rednes, warmth and swelling/ edges marked and the redness extends to the upper arm from is hand/ has a laceration on the forerm area that is scabbed over) Musculoskeletal: full muscle strength Neurologic: AAOx3 Psychiatric: interacting appropriately, not anxious ICD10 Worksheet Patient Problems: Problems Problem Status Onset Cellulitis of right upper extremity Acute Cellulitis of hand Acute
[2016-12-29] MEDS ORDERED: MAGNESIUM HYDROXIDE 30 ML UDCUP PO PRN (11:16)
[2016-12-29] MEDS ORDERED: BISACODYL 10 MG SUPP PR PRN (11:16)
[2016-12-29] MEDS ORDERED: LACTULOSE 20 GM/30 ML UDCUP PO PRN (11:16)
[2016-12-29] MEDS: METOPROLOL SUCCINATE XR 25 MG TAB PO SCH (12:09)
[2016-12-29] MEDS: POLYETHYLENE GLYCOL 3350 17 GM PKT PO SCH (12:10)
--- NOTE | 2016-12-29 16:26 | PCMIDPN ---
Assessment/Plan: Assessment: Right upper extremity cellulitis-improves when the patient elevates his arm but when the arm is dependent the swelling recurs. Erythema appears dusky. No significant skin induration. Patient continues on cefazolin monotherapy. Needs a day or 2 more of empiric treatment before judgment can be made if it is a failure or not. Plan: 1. Continue cefazolin monotherapy. 2. Follow appearance of right upper extremity. 12/29/16 18:14 Subjective: Patient is resting in his hospital bed. His is in the room. He denies any fevers or chills. States that his arm swells up when he hangs at dependently. No fevers or chills. Tolerating cefazolin without issue. Objective: Cefazolin # 2 Vital Signs Temp Pulse Resp BP Pulse Ox 36.4 C 91 16 116/57 L 86 L 12/29/16 16:00 12/29/16 16:00 12/29/16 16:00 12/29/16 16:00 12/29/16 16:00 Laboratory Results 12/29/16 04:50 12/28/16 05:22 12/28/16 12/29/16 12/30/16 05:59 05:59 05:59 Intake Total 1200 1300 450 Balance 1200 1300 450 - Physical Exam General Appearance: WD/WN, alert, no apparent distress, non-toxic Respiratory: lungs clear, normal breath sounds, No respiratory distress Cardiac/Chest: regular rate, rhythm, No tachycardia Extremities: inflammation, swelling, erythema, No non-tender, No normal inspection (Right upper extremity with dusky erythema elbow distal) Skin: normal color, warm/dry, No rash Neuro/Psych: alert, normal mood/affect, oriented x 3 ICD10 Worksheet Patient Problems: Problems Problem Status Onset Cellulitis of right upper extremity Acute Cellulitis of hand Acute
[2016-12-29] MEDS: ASPIRIN 325 MG TAB PO SCH (17:51)
[2016-12-29] MEDS: ROSUVASTATIN CALCIUM 20 MG TAB PO SCH (17:51)
[2016-12-29] MEDS: SENNOSIDES/DOCUSATE SODIUM TAB PO SCH (22:41)
[2016-12-29] MEDS: LATANOPROST 0.005% 2.5 ML OPHT DROPS LEFTEYE SCH (22:46)
[2016-12-30] MEDS: LEVOTHYROXINE 50 MCG TAB PO SCH (04:51)
[2016-12-30] MEDS: CLINDAMYCIN 600 MG/DEXTROSE 50 ML IV SCH ×3 (04:51→21:02)
[2016-12-30] MEDS: ceFAZolin 2 GM/DEXTROSE 100 ML IV SCH ×3 (04:52→21:02)
--- NOTE | 2016-12-30 08:05 | PCMIDPN ---
Assessment/Plan: Assessment/Plan: 1. RUE cellulitis with ulceration: - Currently on Ancef + Clindamycin 9 (D#3/) -Discussed with patient importance of RUE elevation -Wbc trending down as of yesterday. Will recheck in AM. -Will continue with above regimen for now with close clinical monitoring. IF doesn't continue to improve will reassess treatment options. -Blood cx ngtd Meds ancef 2g q8- 12/28/16 clinda 600mg q8- 12/28/16 Subjective: afebrile. denies shortness of breath, abd pain, or diarrhea. actually hasn't moved bowels here yet. Less swelling over RUE. only mild tenderness present. Objective: Vital Signs Temp Pulse Resp BP Pulse Ox 36.8 C 89 18 112/69 88 L 12/30/16 07:38 12/30/16 07:38 12/30/16 07:38 12/30/16 07:38 12/30/16 07:38 Laboratory Results 12/29/16 04:50 12/28/16 05:22 12/29/16 12/30/16 12/31/16 05:59 05:59 05:59 Intake Total 1300 1200 Output Total 450 Balance 1300 750 - Physical Exam General Appearance: alert, no apparent distress Respiratory: lungs clear, wheezing (mild) Cardiac/Chest: regular rate, rhythm, No systolic murmur Extremities: swelling Abdomen: normal bowel sounds, non-tender, soft, No distended Skin: erythema (RUE: erythema from hand, forearm, and lower arm. maybe some lightening of redness but still majority of area is still involved where area was demarcated. mild warmth. mild tenderness to palpation. scabbed ulceration on forearm noted. ) ICD10 Worksheet Patient Problems: Problems Problem Status Onset Cellulitis of right upper extremity Acute Cellulitis of hand Acute
[2016-12-30] MEDS: LISINOPRIL 20 MG TAB PO SCH (08:23)
[2016-12-30] MEDS: SENNOSIDES/DOCUSATE SODIUM TAB PO SCH ×2 (08:23→20:57)
[2016-12-30] MEDS: POLYETHYLENE GLYCOL 3350 17 GM PKT PO SCH (08:23)
[2016-12-30] MEDS: ENOXAPARIN 40 MG/0.4 ML SYR SC SCH (08:23)
[2016-12-30] MEDS: BRIMONIDINE 0.1% 5 ML OPHT.BTL EACHEYE SCH ×2 (08:25→20:59)
--- NOTE | 2016-12-30 11:19 | HOSPPROG ---
Hospitalist Progress Note Assessment/Plan: Mr Tirado is an 89 y/0 male who hit a door handle and sustained a laceration. This was sutured closed and he was treated w Keflex. This occurred approximately a week prior to his admission. Reviewed his care with Dr Butler. # RUE cellulitis after laceration -started on Ancef and Clindamycin on 12/28 -blood cx shows no growth at this time -slow to improve # leukocytosis d/t above # hypoxia - nothing clearly on CXR - start IS -improved today/ on room air during my evaluation #constipation -bowel protocol # htn - cont lisinopril, metoprolol -bp 112/69 # hld - statin # dvt ppx - lovenox Subjective: Gabriel said his hand still feels swollen, but slightly better. Objective: Vital Signs Temp Pulse Resp BP Pulse Ox 36.8 C 89 18 112/69 88 L 12/30/16 07:38 12/30/16 07:38 12/30/16 07:38 12/30/16 07:38 12/30/16 07:38 Laboratory Results 12/29/16 04:50 12/28/16 05:22 12/29/16 12/30/16 12/31/16 05:59 05:59 05:59 Intake Total 1300 1200 Output Total 450 Balance 1300 750 PT 15.1 SEC (12.0-15.0) H 12/26/16 15:00 INR 1.19 (0.83-1.16) H 12/26/16 15:00 - Physical Exam Constitutional: no apparent distress, appears nourished, not in pain Eyes: PERRL Ears, Nose, Mouth, Throat: hearing normal Respiratory: no respiratory distress Skin: warm, other (right hand with less swelling/ cont to have redness and erythema to right forearm area.) Musculoskeletal: no muscle tenderness Neurologic: AAOx3 Psychiatric: interacting appropriately ICD10 Worksheet Patient Problems: Problems Problem Status Onset Cellulitis of right upper extremity Acute Cellulitis of hand Acute
[2016-12-30] MEDS: METOPROLOL SUCCINATE XR 25 MG TAB PO SCH (11:49)
[2016-12-30] MEDS: ROSUVASTATIN CALCIUM 20 MG TAB PO SCH (18:09)
[2016-12-30] MEDS: ASPIRIN 325 MG TAB PO SCH (18:09)
[2016-12-30] MEDS: ACETAMINOPHEN 325 MG TAB PO PRN (20:57)
[2016-12-30] MEDS: LATANOPROST 0.005% 2.5 ML OPHT DROPS LEFTEYE SCH (20:59)
[2016-12-31 05:05] LABS: % IMMATURE GRANULYOCYTES 0.7 % (0.0-1.1); ABSOLUTE IMMATURE GRANULOCYTES 0.06 10^3/uL (0.00-0.10); ADD DIFF? NO; ADD MORPH? NO; ADD SCAN? NO; ATYPICAL LYMPHOCYTE FLAG 10 (0-99); FRAGMENT RBC FLAG 0 (0-99); HEMATOCRIT 41.9 % (40.0-51.0); HEMOGLOBIN 13.6 g/dL (13.7-17.5); LEFT SHIFT FLG 0 (0-99); LIPEMIA HEMOLYSIS FLAG 80 (0-99); MEAN CELL HEMOGLOBIN 31.6 pg (27.9-34.1); MEAN CELL HEMOGLOBIN CONCENTR. 32.5 g/dL (32.4-36.7); MEAN CELL VOLUME 97.2 fL (81.5-99.8); MEAN PLATELET VOLUME 10.5 fL (8.7-11.7); PLATELET CLUMPS FLAG 0 (0-99); PLATELET COUNT 209 10^3/uL (150-400); RED BLOOD CELL COUNT 4.31 10^6/uL (4.40-6.38)
[2016-12-31] MEDS: CLINDAMYCIN 600 MG/DEXTROSE 50 ML IV SCH (05:29)
[2016-12-31] MEDS: LEVOTHYROXINE 50 MCG TAB PO SCH (05:29)
[2016-12-31] MEDS: ceFAZolin 2 GM/DEXTROSE 100 ML IV SCH ×3 (05:29→22:29)
[2016-12-31] MEDS: SENNOSIDES/DOCUSATE SODIUM TAB PO SCH ×2 (09:16→22:36)
[2016-12-31] MEDS: LISINOPRIL 20 MG TAB PO SCH (09:16)
[2016-12-31] MEDS: POLYETHYLENE GLYCOL 3350 17 GM PKT PO SCH (09:16)
[2016-12-31] MEDS: BRIMONIDINE 0.1% 5 ML OPHT.BTL EACHEYE SCH ×2 (09:18→20:26)
[2016-12-31] MEDS: ENOXAPARIN 40 MG/0.4 ML SYR SC SCH (09:21)
[2016-12-31] MEDS: METOPROLOL SUCCINATE XR 25 MG TAB PO SCH (12:02)
--- NOTE | 2016-12-31 12:33 | HOSPPROG ---
Hospitalist Progress Note Assessment/Plan: Mr Tirado is an 89 y/0 male who hit a door handle and sustained a laceration. This was sutured closed and he was treated w Keflex. This occurred approximately a week prior to his admission. Reviewed his care with Dr Obrien. # RUE cellulitis after laceration -started on Ancef and Clindamycin on 12/28/Clinda to be dc today -blood cx shows no growth at this time -slow to improve -swelling and redness better # leukocytosis -resolved # hypoxia - resolved #constipation -bowel protocol # htn - cont lisinopril, metoprolol -bp 149/67 # hld - statin # dvt ppx - lovenox Subjective: Gabriel is frustrated that he still has swelling in his right hand. no c/o pain. Objective: Vital Signs Temp Pulse Resp BP Pulse Ox 36.4 C 82 12 149/67 H 90 L 12/31/16 10:15 12/31/16 10:15 12/31/16 10:15 12/31/16 10:15 12/31/16 10:15 Laboratory Results 12/31/16 04:45 12/28/16 05:22 12/30/16 12/31/16 01/01/17 05:59 05:59 05:59 Intake Total 1200 1400 Output Total 450 Balance 750 1400 PT 15.1 SEC (12.0-15.0) H 12/26/16 15:00 INR 1.19 (0.83-1.16) H 12/26/16 15:00 - Physical Exam Constitutional: no apparent distress, appears nourished, not in pain Eyes: PERRL Ears, Nose, Mouth, Throat: hearing normal Cardiovascular: regular rate and rhythym Respiratory: no respiratory distress Gastrointestinal: normoactive bowel sounds Skin: warm, other (right arm with overall less swelling, less warmth/ the redness has slightly ext past the markings on the bicep area) Musculoskeletal: full muscle strength Neurologic: AAOx3 Psychiatric: interacting appropriately, not anxious ICD10 Worksheet Patient Problems: Problems Problem Status Onset Cellulitis of right upper extremity Acute Cellulitis of hand Acute
--- NOTE | 2016-12-31 15:02 | PCMIDPN ---
Assessment/Plan: Assessment/Plan: * Right upper extremity cellulitis: Clinically improved with decreasing erythema and edema which has receded most prominently over forearm with some residual along upper arm and in dependent regions. No evidence of focal abscess. Suspect this is likely due to beta-hemolytic streptococci. Will discontinue clindamycin given clinical improvement and likely have achieved maximal benefit of antitoxin production. Continue cefazolin and upper extremity elevation. Discussed with patient that anticipate resolution will be slow, particularly in light of having experienced previous cellulitis in right upper extremity which may impact efficacy of lymphatic drainage. 12/31/16 14:58 Subjective: Patient complains of persistent swelling and erythema or along upper arm in particular Objective: Vital Signs Temp Pulse Resp BP Pulse Ox 36.4 C 81 16 121/57 H 90 L 12/31/16 12:00 12/31/16 12:00 12/31/16 12:00 12/31/16 12:00 12/31/16 12:00 Laboratory Results 12/31/16 04:45 12/28/16 05:22 12/30/16 12/31/16 01/01/17 05:59 05:59 05:59 Intake Total 1200 1400 Output Total 450 Balance 750 1400 cefazolin # 4 clindamycin # 4 blood cultures x2 no growth - Physical Exam General Appearance: alert, no apparent distress EENT: No scleral icterus, No conjunctival petechiae Extremities: inflammation ( right upper extremity with decreased erythema and edema, particularly over forearm and hand; some early desquamation of skin over forearm; upper arm/ dependent portion of elbow with persistent erythema and mild induration +warmth and tenderness; no fluctuance or bulla) Abdomen: non-tender, No distended Lymphatic: other ( no lymphangitis right upper extremity) ICD10 Worksheet Patient Problems: Problems Problem Status Onset Cellulitis of right upper extremity Acute Cellulitis of hand Acute
[2016-12-31] MEDS: ROSUVASTATIN CALCIUM 20 MG TAB PO SCH (17:49)
[2016-12-31] MEDS: ASPIRIN 325 MG TAB PO SCH (17:49)
[2016-12-31] MEDS: LATANOPROST 0.005% 2.5 ML OPHT DROPS LEFTEYE SCH (22:29)
[2016-12-31] MEDS: HYDROCODONE/APAP 5/325 TAB PO PRN (22:37)
[2017-01-01] MEDS: ceFAZolin 2 GM/DEXTROSE 100 ML IV SCH ×3 (05:33→22:25)
[2017-01-01] MEDS: LEVOTHYROXINE 50 MCG TAB PO SCH (05:37)
[2017-01-01] MEDS: LISINOPRIL 20 MG TAB PO SCH (08:49)
[2017-01-01] MEDS: ENOXAPARIN 40 MG/0.4 ML SYR SC SCH (08:49)
[2017-01-01] MEDS: BRIMONIDINE 0.1% 5 ML OPHT.BTL EACHEYE SCH ×2 (08:51→20:44)
[2017-01-01] MEDS: POLYETHYLENE GLYCOL 3350 17 GM PKT PO SCH (08:52)
[2017-01-01] MEDS: SENNOSIDES/DOCUSATE SODIUM TAB PO SCH ×2 (08:52→20:34)
--- NOTE | 2017-01-01 10:08 | HOSPPROG ---
Hospitalist Progress Note Assessment/Plan: Mr Tirado is an 89 y/0 male who hit a door handle and sustained a laceration. This was sutured closed and he was treated w Keflex. This occurred approximately a week prior to his admission. # RUE cellulitis after laceration - Ancef -blood cx shows no growth at this time -slow to improve -swelling and redness better # leukocytosis -resolved # hypoxia - resolved #constipation -bowel protocol # htn - cont lisinopril, metoprolol -bp 149/67 # hld - statin # dvt ppx - lovenox Subjective: Gabriel is feeling well/ anxious to go home but doesn't want to leave too soon. Objective: Vital Signs Temp Pulse Resp BP Pulse Ox 36.6 C 63 18 156/70 H 92 01/01/17 07:02 01/01/17 07:02 01/01/17 07:02 01/01/17 07:02 01/01/17 07:02 Laboratory Results 12/31/16 04:45 12/28/16 05:22 12/31/16 01/01/17 01/02/17 05:59 05:59 05:59 Intake Total 1400 1250 Balance 1400 1250 PT 15.1 SEC (12.0-15.0) H 12/26/16 15:00 INR 1.19 (0.83-1.16) H 12/26/16 15:00 - Physical Exam Constitutional: no apparent distress, appears nourished, not in pain Eyes: PERRL Ears, Nose, Mouth, Throat: hearing normal Cardiovascular: regular rate and rhythym Respiratory: no respiratory distress Gastrointestinal: normoactive bowel sounds Skin: other (right arm much improved/ redness less, erythema less/ skin is flakey and had more wrinkles) Musculoskeletal: full muscle strength Neurologic: AAOx3 Psychiatric: interacting appropriately ICD10 Worksheet Patient Problems: Problems Problem Status Onset Cellulitis of right upper extremity Acute Cellulitis of hand Acute
[2017-01-01] MEDS: METOPROLOL SUCCINATE XR 25 MG TAB PO SCH (12:04)
--- NOTE | 2017-01-01 12:59 | PCMIDPN ---
Assessment/Plan: Assessment/Plan: * Right upper extremity cellulitis: Significant clinical improvement with resolving erythema, edema and tenderness. Plan additional 24 hours of cefazolin with transition to oral Augmentin to complete another 7 days of therapy post discharge tomorrow. Will arrange for follow-up in my office with me next week. Findings and plan reviewed with patient and Althea Blanco NP. 01/01/17 12:57 Subjective: Patient complains of persistent right hand swelling. Objective: Vital Signs Temp Pulse Resp BP Pulse Ox 36.3 C 71 16 127/67 H 91 L 01/01/17 11:32 01/01/17 11:32 01/01/17 11:32 01/01/17 11:32 01/01/17 11:32 Laboratory Results 12/31/16 04:45 12/28/16 05:22 12/31/16 01/01/17 01/02/17 05:59 05:59 05:59 Intake Total 1400 1250 Balance 1400 1250 Cefazolin # 5 Blood cultures x2 no growth - Physical Exam General Appearance: alert, no apparent distress EENT: No scleral icterus, No thrush Cardiac/Chest: regular rate, rhythm Extremities: inflammation (Significant decrease in erythema, edema, warmth and tenderness over entirety of right upper extremity; indurated area significantly softer today; mild residual hand swelling without limitation in range of motion) Abdomen: non-tender, No distended ICD10 Worksheet Patient Problems: Problems Problem Status Onset Cellulitis of right upper extremity Acute Cellulitis of hand Acute
[2017-01-01] MEDS: ROSUVASTATIN CALCIUM 20 MG TAB PO SCH (17:35)
[2017-01-01] MEDS: ASPIRIN 325 MG TAB PO SCH (17:36)
[2017-01-01] MEDS: LATANOPROST 0.005% 2.5 ML OPHT DROPS LEFTEYE SCH (22:25)
[2017-01-01] MEDS: HYDROCODONE/APAP 5/325 TAB PO PRN (22:25)
[2017-01-02] MEDS: ceFAZolin 2 GM/DEXTROSE 100 ML IV SCH ×2 (05:41→13:42)
[2017-01-02] MEDS: LEVOTHYROXINE 50 MCG TAB PO SCH (05:42)
[2017-01-02] MEDS: LISINOPRIL 20 MG TAB PO SCH (08:43)
[2017-01-02] MEDS: POLYETHYLENE GLYCOL 3350 17 GM PKT PO SCH (08:45)
[2017-01-02] MEDS: ENOXAPARIN 40 MG/0.4 ML SYR SC SCH (08:45)
[2017-01-02] MEDS: SENNOSIDES/DOCUSATE SODIUM TAB PO SCH (08:45)
[2017-01-02] MEDS: BRIMONIDINE 0.1% 5 ML OPHT.BTL EACHEYE SCH (08:46)
[2017-01-02 11:42] VITALS: BP 120/56; PULSE 67; RESP 18; TEMP 98.1; O2SAT 92
[2017-01-02] MEDS: METOPROLOL SUCCINATE XR 25 MG TAB PO SCH (12:05)
--- NOTE | 2017-01-03 04:07 | GDS ---
[f rep st] DISCHARGE SUMMARY DISCHARGE DIAGNOSES: 1. Right upper extremity cellulitis. 2. Leukocytosis. 3. Hypoxia. 4. Constipation. 5. Hypertension. CONSULTATIONS: 1. Infectious Disease. 2. Surgery. PHYSICAL EXAMINATION: GENERAL: The patient is alert. VITAL SIGNS: Afebrile at 36.7, pulse is 67, respiratory rate is 18, blood pressure is 120/56. He is saturating 98% on room air. I have seen and evaluated the patient on the day of discharge. HOSPITAL COURSE: The patient is an 89-year-old male, who presented to the emergency room secondary to increased swelling and pain. He was evaluated and diagnosed with: 1. Right upper extremity cellulitis after a laceration. During this hospitalization, he was treate d with IV Ancef. He has responded well. He did receive a consultation from General Surgery, as wel l as Infectious Disease. Blood cultures have been negative to date. He will continue Augmentin for a course of 7 days total after the time of disposition and follow up at the outpatient center with [facility]. 2. Leukocytosis. This has resolved. 3. Hypoxemia. This has resolved. 4. Constipation. This was treated with bowel protocol. 5. Hypertension. This is stable. DISPOSITION: The patient will be discharged home independently. FOLLOWUP: Will be with his primary care physician, Jose Miguel Salazar, as well as Dr. Dxe Obrien on 2016 at 1p.m. DISCHARGE MEDICATIONS: Please refer to EMR form. I have provided the patient a prescription for Au gmentin [address] #14. DISCHARGE INSTRUCTIONS: I have instructed him to return to the emergency room if his erythema shoul d reoccur, he develops fevers, or has other complications. He and his both state that they und erstand this. PENDING STUDIES: None. I spent greater than 35 minutes in the care, coordination, and management of the patient's dispositi on. /[id number]/MODL
== END 2017-01-02 15:00 | disposition home or self-care (01) | DRG 603 ==
LOC: OBSVTOIN 19:21 → F3N 20:33 → F3E 12-31 08:53
PROVIDERS: ADMIT Internal Medicine; ATTEND Internal Medicine
DX: L03.113 Cellulitis of right upper limb (principal); S51.811S Laceration without foreign body of right forearm, sequela; R09.02 Hypoxemia; K59.00 Constipation, unspecified; I10 Essential (primary) hypertension; E78.5 Hyperlipidemia, unspecified; E03.9 Hypothyroidism, unspecified
CPT/HCPCS: 96365; 97110-GP; 97116-GP; 97162-GP; 97530-GP; G8978-GP-CJ; G8979-GP-CI; G8980-GP-CI; J0690; J1650; J3370; Q9967